=== PATIENT | female | born 1990 | race Caucasian/White ===

== ENCOUNTER 2023-11-07 20:52 | Emergency (ER) | payer OTHER ==
[~2023-11-07] VITALS: Ht 157.5 cm; Wt 127.0 kg
[2023-11-07 21:28] VITALS: TEMP 98
[2023-11-07 21:53] VITALS: BP 138/89; O2SAT 98
== END 2023-11-07 21:54 | disposition home or self-care (01) ==
LOC: ER 20:59
DX: R51.9 Headache, unspecified (principal); Z60.2 Problems related to living alone; V89.2XXA Person injured in unspecified motor-vehicle accident, traffic, initial encounter; Y93.89 Activity, other specified; Y92.89 Other specified places as the place of occurrence of the external cause; Y99.8 Other external cause status